=== PATIENT | male | born 1975 | race Caucasian/White ===

== ENCOUNTER → 2018-04-01 12:24 | Outpatient (CLI) | payer OTHER, SELFPAY ==
--- NOTE | 2018-04-01 | DI.MRI.S_ITS ---
PROCEDURE: MR KNEE RT WO CON INDICATIONS: RIGHT KNEE PAIN TECHNIQUE: Noncontrast sagittal PD fast spin echo and T2 fast spin echo with fat saturation, sagittal 3-D FLASH with fat saturation; coronal T1 spin echo and PD fast spin echo with fat saturation, and axial PD fast spin echo with fat saturation through the knee. COMPARISON: None. FINDINGS: Image quality: Excellent. Menisci: The medial and lateral menisci demonstrate normal morphology and internal signal. The meniscal root ligaments appear intact. Cruciate ligaments: The posterior cruciate ligament is intact, but demonstrates mild internal T2 signal elevation. The anterior cruciate ligament graft demonstrates significant signal loss and mild redundancy, indicating high-grade partial-thickness tearing. Medial structures: The medial collateral ligament appears intact. There is mild T2 signal elevation of the tibial insertion of the semimembranosus, indicating insertional tendinitis. Visualized portions of the pes anserinus tendons appear normal. No abnormal bursal fluid. Lateral structures: The lateral collateral ligament, long and short heads of the biceps femoris tendon appear intact. The popliteus tendon appears normal; the popliteofibular ligament appears intact. The posterosuperior and anteroinferior popliteomeniscal fascicles appear intact. The arcuate and fabellofibular ligaments appear intact, on either side of the lateral inferior geniculate artery. Iliotibial band appears normal. Anterior structures: The quadriceps and patellar tendons appear intact. Patellar alignment is normal. No femoral trochlear dysplasia or ventral trochlear prominence. No edema in the infrapatellar fat pad. Bones and cartilage: No bone marrow contusions or fractures. Mild diffuse articular cartilage loss overlies the weightbearing aspects of the medial femoral condyle and medial tibial plateau. Joint space: There is physiologic knee joint fluid. No Leyva's cyst. Normal appearing synovial plicae are incidentally noted. IMPRESSION: 1. High-grade partial-thickness tearing of the interposition ligament graft. 2. No evidence of meniscal tear. 3. Mild medial compartment articular cartilage loss. 4. Insertional tendinitis of the semimembranosus. Dictated by: Freedom Gilliland M.D. on 04/01/2018 at 13:13 Approved by: Freedom Gilliland M.D. on 04/01/2018 at 13:16
== END ==
PROVIDERS: Visit Provider Registered Nurse Diabetes Educator
DX: S83.511A Sprain of anterior cruciate ligament of right knee, initial encounter (principal); M25.561 Pain in right knee; M76.821 Posterior tibial tendinitis, right leg
CPT/HCPCS: 73721